=== PATIENT | female | born 1985 | race Caucasian/White ===

== ENCOUNTER 2018-06-04 10:29 | Inpatient (IN) | payer OTHER ==
[2018-06-04] MEDS ORDERED: CEFAZOLIN/Water 2 GM/20 ML SYRINGE SLOW IVP SCH (11:25)
[2018-06-04] MEDS ORDERED: Ondansetron HCl/PF 4 MG/2 ML Vial IVP PRN ×4 (11:25→16:47)
[2018-06-04] MEDS ORDERED: Bicitra 30 ML UDCUP PO SCH (11:25)
[2018-06-04] MEDS ORDERED: Promethazine HCl 25 MG/ML VIAL IM PRN ×2 (11:25→14:19)
[2018-06-04] MEDS ORDERED: Lactated Ringer's 1,000 ML IV SCH ×2 (11:25→16:47)
[2018-06-04 11:31] VITALS: BMI 21.1
[2018-06-04 11:36] LABS: Hemoglobin 12.9 g/dL (12.0-16.0); Mean Corpuscular Hemoglobin 28.3 pg (27.0-31.0); Mean Corpuscular Volume 82.7 fL (78.0-98.0); Red Blood Cell (RBC) Count 4.55 mill/uL (4.20-5.40)
[2018-06-04 11:37] LABS: Mean Corpuscular HGB CONC 34.2 g/dL (32.0-36.0); Mean Platelet Volume 12.3 fL (7.4-10.4); Platelet Count 199 thou/uL (130-400); RBC Distribution Width 20.1 % (11.5-14.5)
[2018-06-04 12:15] LABS: ALT (SGPT) 112 U/L (8-55); AST (SGOT) 73 U/L (5-34); Albumin 3.4 g/dL (3.5-5.0); Alkaline Phosphatase 329 U/L (40-150); Anion Gap 15 mmol/L (10-20); BUN (Urea Nitrogen) 9 mg/dL (7.0-18.7); Bilirubin, Total 0.4 mg/dL (0.2-1.2); Calc. Creatinine Clearance 93 mL/min (70-130); Calcium 9.5 mg/dL (7.8-10.44); Carbon Dioxide 20 mmol/L (22-29); Chloride 107 mmol/L (98-107); Estimated GFR-MDRD 81; Globulin 3.7 g/dL (2.4-3.5); Glucose 73 mg/dL (70-105); Potassium 4.6 mmol/L (3.5-5.1); Protein, Total 7.1 g/dL (6.0-8.3); Sodium 137 mmol/L (136-145)
[2018-06-04 12:30] LABS: Syphilis Antibody Nonreactive (Nonreactive); Syphilis Antibody Index 0.07 S/CO (<1.00 Non-Reactive)
[2018-06-04 12:31] LABS: HBSAg Index 0.18 S/CO (0-0.99); Hep B Surf Ag Non-Reactive S/CO (NonReactive)
[2018-06-04] MEDS ORDERED: Morphine PF 1 MG/ML SYR ONE (12:55)
[2018-06-04] MEDS ORDERED: Oxytocin 10 UNITS/ML VIAL ONE (12:55)
[2018-06-04] MEDS ORDERED: Bupivacaine 0.75% W/DEXTROSE 8.25% 2 ML AMP ONE (12:55)
[2018-06-04] MEDS ORDERED: Lidocaine 1% PF 5 ML VIAL ONE (12:55)
[2018-06-04] MEDS ORDERED: ePHEDrine/0.9% NaCl/PF SYRINGE 50 mg/10 ml ONE ×2 (12:55→13:21)
[2018-06-04] MEDS ORDERED: Naloxone HCl 0.4 mg/ml Vial IVP PRN ×2 (14:19)
[2018-06-04] MEDS ORDERED: Meperidine HCl/PF 25 MG/ML VIAL SLOW IVP PRN (14:19)
[2018-06-04] MEDS ORDERED: Ketorolac Tromethamine 30 MG/ML VIAL IVP PRN ×2 (14:19→17:05)
[2018-06-04] MEDS ORDERED: HYDROmorphone 2 MG/ML VIAL SLOW IVP PRN (14:19)
[2018-06-04] MEDS ORDERED: Eucerin (Mineral Oil/Petrolatum,White) 30 gm Jar TOP PRN (14:19)
[2018-06-04] MEDS ORDERED: Promethazine HCl 25 MG SUPP PR PRN (14:19)
[2018-06-04] MEDS ORDERED: diphenhydrAMINE 50 MG/ML VIAL IVP PRN (14:19)
[2018-06-04] MEDS ORDERED: Naloxone HCl 0.4 mg/ml Vial IV PRN (14:19)
[2018-06-04] MEDS ORDERED: Ketorolac Tromethamine 30 MG/ML VIAL IVP SCH (14:30)
[2018-06-04] MEDS ORDERED: Communication Order-Pharmacy FS SCH (14:30)
[2018-06-04] MEDS ORDERED: NS / Oxytocin 40 units/1000ml 1,000 ML ONE (15:20)
[2018-06-04] MEDS ORDERED: diphenhydrAMINE 25 MG CAP PO PRN (16:47)
[2018-06-04] MEDS ORDERED: Acetaminophen 325 MG TAB PO PRN (16:47)
[2018-06-04] MEDS ORDERED: Bisacodyl 10 MG SUPP PR PRN (16:47)
[2018-06-04] MEDS ORDERED: Lanolin Ointment 7 GM TUBE TOP PRN (16:47)
--- NOTE | 2018-06-04 19:37 | OP-2 ---
DATE OF PROCEDURE: 06/04/2018 PRIMARY SURGEON: Dr. Misti Armendariz. SKEIN YARN DRIER SURGEON: Dr. Isael Armendariz. RESIDENT SURGEON: Dr. Gary Byrd. PROCEDURE: Repeat low transverse section. PREOPERATIVE DIAGNOSES: 1. Term intrauterine . 2. Previous section x1. 3. Cholestasis of . POSTOPERATIVE DIAGNOSES: 1. Term intrauterine . 2. Previous section x1. 3. Cholestasis of . 4. Fascial defect, repaired. 5. Uterine window. ANESTHESIA: Spinal. INDICATIONS: The patient is a 32-year-old G2, now P2 female at 37 and 6 weeks' gestation presenting for repeat scheduled secondary to cholestasis of . PROCEDURE IN DETAIL: After risks, benefits, and alternatives were explained to the patient, she gave informed consent. Preoperative antibiotics included cefazolin 2 grams IV. The patient was taken to the operating room and spinal anesthesia was initiated. She was placed in the supine position with left tilt and prepped and draped in the usual sterile fashion. A Pfannenstiel incision was made with a scalpel and carried down to the level of the fascia which was sharply nicked. The fascial cut was extended bilaterally with Reis scissors. The inferior and superior edges of the cut fascial edges w ere elevated with Rudy clamps and the underlying rectus muscles were sharply and bluntly dissected free. The recti were divided digitally and retracted manually. Peritoneum was entered bluntly and r etracted with Kochers. The Kostas O ring was inserted. A 6 cm uterine window was noted. part s were visible. A low transverse score was made with scalpel including the uterine window in the sco re. Uterus was entered bluntly. Clear fluid was seen. Hysterotomy was extended manually. w as noted to be vertex and was easily delivered by fundal pressure. Mouth and nares were bulb suction ed. Cord clamped and cut. Grossly normal male handed to waiting nurse. Cord blood obtained. Placenta was extracted manually found to be intact with 3-vessel cord and discarded. The endometri um was curetted with a dry lap. The uterus was closed with 1-0 Vicryl CTX in a locking running fashi on. Following this, hemostasis was noted. The uterus was examined as well as the gutters and found to be hemostatic. The peritoneum was closed using 2-0 chromic. The fascia was closed using a runnin g nonlocking 0 Vicryl suture. During closure of the fascia, a fascial defect was noted and was incor porated into the repair. The fascial defect was closed. 3-0 plain gut was used to throw 3 simple in terrupted subcutaneous layers for closure of space. Subcutaneous tissue was examined for bleede rs and bovied as necessary. Skin was approximated with singh and a pressure dressing was placed. All counts were correct. The patient tolerated the procedure well and was taken to recovery room in stable condition. Quantitated blood loss pending at this time. SPECIMENS: Cord blood sent to lab for blood type. FINDINGS: Grossly male infant with Apgars of 9 and 9, 7 pounds, 5 ounces. Grossly normal placenta w ith three-vessel cord discarded. DRAINS: Vazquez to gravity draining clear urine.
[2018-06-05] MEDS: Docusate Calcium (SURFAK) 240 MG CAP PO SCH ×3 (05:38→20:08)
[2018-06-05 06:59] LABS: Mean Corpuscular HGB CONC 33.8 g/dL (32.0-36.0); Mean Corpuscular Hemoglobin 28.4 pg (27.0-31.0); Mean Corpuscular Volume 84.1 fL (78.0-98.0); Platelet Count 136 thou/uL (130-400); RBC Distribution Width 19.8 % (11.5-14.5); Red Blood Cell (RBC) Count 4.23 mill/uL (4.20-5.40); White Blood Cell (WBC) Count 5.3 thou/uL (4.8-10.8)
--- NOTE | 2018-06-05 07:16 | PDOC.PP ---
Post Progress Note Post Day #: 1 Subjective: This morning mother states she is feeling well overall. She slept well overnight. Pain is starting to kick and and would like a norco this AM. She did not take liquids last night but is feeling hungry this AM. She did not walk last night but is feeling like she could start this AM. Encouraged Ambulation. PO intake tolerated: no Flatus: no Ambulation: no Vital Signs (12 hours) Temp Pulse Resp BP 06/05/18 00:00 98.5 F 70 18 06/04/18 20:00 98.5 F 70 18 126/58 L Weight Weight 59.421 kg - Physical Examination General: NAD Cardiovascular: no m/r/g, RRR Respiratory: clear to auscultation bilaterally, non-labored breathing Abdominal: + bowel sounds (hypoactive), appropriately TTP Fundus firm & at: 1 cm below umbilicus Skin: CS incision dry & intact, no rash Neurological: no gross focal deficits Psychiatric: A&Ox3, normal affect Result Diagrams: 06/05/18 06:35 06/04/18 11:20 Additional Labs: Post Labs Blood Type O POSITIVE 06/04/18 11:20 Hep Bs Antigen Non-Reactive S/CO (NonReactive) 06/04/18 11:20 (1) care following delivery Code(s): Z39.2 - ENCOUNTER FOR ROUTINE FOLLOW-UP Status: Acute (2) Cholestasis during Code(s): O26.619 - LIVER AND BILIARY TRACT DISORD IN , UNSP TRIMESTER; K83.1 - OBSTRUCTION OF BILE DUCT Status: Acute - Assessment/Plan # PP day 1 - Hgb 12.9-> 12 - feeling hungry this AM - encouraged ambulation - continue iron, docusate, pain control - scant vaginal bleeding, incision WNL # Cholestasis of - denies itching overnight - CMP pending this AM, will f/u on transaminases Code: full Fluids: PO Diet: full liquid, advance as tolerated Dispo: 2 days
[2018-06-05 07:17] LABS: ALT (SGPT) 80 U/L (8-55); AST (SGOT) 65 U/L (5-34); Albumin 2.3 g/dL (3.5-5.0); Alkaline Phosphatase 212 U/L (40-150); Bilirubin, Direct 0.1 mg/dL (0.1-0.3); Bilirubin, Total 0.4 mg/dL (0.2-1.2); Protein, Total 5.7 g/dL (6.0-8.3)
[2018-06-05] MEDS: Acetaminophen/Codeine 30-300mg Tablet PO PRN ×2 (09:42→19:10)
[2018-06-05] MEDS: Prenatal Vitamin 1 TAB PO SCH (09:42)
[2018-06-05] MEDS: Simethicone Chewable 80 MG TAB PO PRN ×2 (09:42→20:08)
[2018-06-05] MEDS: Ibuprofen 800 MG TAB PO SCH ×2 (12:57→20:08)
[2018-06-06] MEDS: HYDROcodone/Acetaminophen 5/325 mg Tablet PO PRN ×2 (00:19→21:39)
[2018-06-06] MEDS: Acetaminophen/Codeine 30-300mg Tablet PO PRN (05:21)
[2018-06-06] MEDS: Ibuprofen 800 MG TAB PO SCH ×3 (05:21→21:39)
[2018-06-06 08:34] LABS: #Eosinphils 0.1 thou/uL (0.0-0.7); #Lymphocytes 1.4 thou/uL (1.20-3.40); #Monocytes 0.4 thou/uL (0.11-0.59); #Neutrophils 3.4 thou/uL (1.40-6.50); %Basophils 0.4 % (0.0-1.0); %Lymphocytes 27.2 % (21.0-51.0); %Monocytes 7.6 % (0.0-10.0); %Neutrophils 63.9 % (42.0-75.0); Hemoglobin 11.5 g/dL (12.0-16.0); Mean Corpuscular HGB CONC 32.5 g/dL (32.0-36.0); Mean Corpuscular Hemoglobin 27.5 pg (27.0-31.0); Mean Corpuscular Volume 84.7 fL (78.0-98.0); Mean Platelet Volume 11.2 fL (7.4-10.4); Platelet Count 171 thou/uL (130-400); RBC Distribution Width 19.9 % (11.5-14.5); Red Blood Cell (RBC) Count 4.18 mill/uL (4.20-5.40); White Blood Cell (WBC) Count 5.3 thou/uL (4.8-10.8)
[2018-06-06 08:50] LABS: ALT (SGPT) 61 U/L (8-55); AST (SGOT) 35 U/L (5-34); Albumin 2.6 g/dL (3.5-5.0); Alkaline Phosphatase 192 U/L (40-150); Bilirubin, Direct 0.1 mg/dL (0.1-0.3); Bilirubin, Total 0.3 mg/dL (0.2-1.2); Protein, Total 6.2 g/dL (6.0-8.3)
[2018-06-06] MEDS: Docusate Calcium (SURFAK) 240 MG CAP PO SCH ×2 (10:14→21:39)
[2018-06-06] MEDS: Prenatal Vitamin 1 TAB PO SCH (10:15)
[2018-06-06] MEDS: Simethicone Chewable 80 MG TAB PO PRN (21:39)
[2018-06-07] MEDS: Ibuprofen 800 MG TAB PO SCH (06:43)
[2018-06-07] MEDS: Acetaminophen/Codeine 30-300mg Tablet PO PRN (06:43)
[2018-06-07 08:13] VITALS: BP 132/71; TEMP 98.7
[2018-06-07] MEDS: Prenatal Vitamin 1 TAB PO SCH (09:08)
[2018-06-07] MEDS: Docusate Calcium (SURFAK) 240 MG CAP PO SCH (09:08)
== END 2018-06-07 14:10 | disposition home or self-care (01) | DRG 765 ==
LOC: L&D 10:29 → 3SW 16:29
PROVIDERS: ADMIT Family Medicine; ATTEND Family Medicine
PROC: 10D00Z1 Extraction of Products of Conception, Low, Open Approach (ICD-10-PCS; principal; 2018-06-04)
PROC: 0JQB0ZZ Repair Perineum Subcutaneous Tissue and Fascia, Open Approach (ICD-10-PCS; 2018-06-04)
PROC: 4A0HXCZ Measurement of Products of Conception, Cardiac Rate, External Approach (ICD-10-PCS; 2018-06-04)
DX: O34.211 Maternal care for low transverse scar from previous cesarean delivery (principal); K83.1 Obstruction of bile duct; O26.62 Liver and biliary tract disorders in childbirth; O94 Sequelae of complication of pregnancy, childbirth, and the puerperium; Z3A.37 37 weeks gestation of pregnancy; Z37.0 Single live birth
CPT/HCPCS: 36415; 51702; 80053; 80076; 85025; 85027; 86780; 86850; 86900; 86901; 87340; J1200; J1885; J2001; J2274; J2590; J3490